=== PATIENT | female | born 1950 | race African-American/Black ===

== ENCOUNTER 2018-09-08 13:51 | Emergency (ER) | payer MEDICARE, OTHER ==
--- NOTE | 2018-09-08 15:13 | ER Document Report ---
ED Medical Screen (RME) - General Chief Complaint: Irregular Pulse Stated Complaint: IRREGULAR HEART RATE Time Seen by Provider: 09/08/18 15:11 Mode of Arrival: Wheelchair Information source: Patient Notes: 67-year-old female presents to ED for complaint of palpitation and irregular heartbeat after she was walking around the porch doing her steps that she has been instructed. She states that she felt a little short of breath and had a headache at the time. She states she can feel her pulse beating in her head. Patient does have a Holter monitor on that she pushed when she felt this racing heart. Patient is alert oriented respirations are regular and unlabored speaking in full sentences. She states she does have a history of a heart attack with blood pressure cholesterol sleep apnea hypothyroid and she was seen a week ago for an ear infection and is on an antibiotic. I have greeted and performed a rapid initial assessment of this patient. A comprehensive ED assessment and evaluation of the patient, analysis of test results and completion of medical decision making process will be conducted by an additional ED providers. TRAVEL OUTSIDE OF THE [place] IN LAST 30 DAYS: No - Related Data Allergies/Adverse Reactions: No Known Allergies Allergy (Verified 08/02/12 14:50) Past Medical History - Social History Chew tobacco use (# tins/day): No Frequency of alcohol use: None Drug Abuse: None - Past Medical History Cardiac Medical History: Reports: Hx Heart Attack - x2, Hx Hypercholesterolemia, Hx Hypertension Pulmonary Medical History: Reports: Hx Asthma Renal/ Medical History: Denies: Hx Peritoneal Dialysis GI Medical History: Reports: Hx Gastroesophageal Reflux Disease Past Surgical History: Reports: Hx Orthopedic Surgery - right ankle - Immunizations Hx Diphtheria, Pertussis, Tetanus Vaccination: No
[2018-09-08] MEDS ORDERED: ASPIRIN 81 MG TABLET, CHEWABLE PO ONE (15:15)
--- NOTE | 2018-09-08 15:36 | RADIOLOGY REPORT (SQ) ---
EXAM DESCRIPTION: CHEST 2 VIEWS COMPLETED DATE/TIME: 09/08/2018 3:28 pm REASON FOR STUDY: Irregular heart beat COMPARISON: 08/27/2010. EXAM PARAMETERS: NUMBER OF VIEWS: two views TECHNIQUE: Digital Frontal and Lateral radiographic views of the chest acquired. RADIATION DOSE: NA LIMITATIONS: none FINDINGS: LUNGS AND PLEURA: No opacities, masses or pneumothorax. No pleural effusion. MEDIASTINUM AND HILAR STRUCTURES: No masses or contour abnormalities. HEART AND VASCULAR STRUCTURES: Heart normal size. No evidence for failure. BONES: No acute findings. Degenerative changes in the spine. HARDWARE: None in the chest. OTHER: Small hiatal hernia. No other significant finding. IMPRESSION: NO ACUTE RADIOGRAPHIC FINDING IN THE CHEST. TECHNICAL DOCUMENTATION: JOB ID: [id number] [employer]- All Rights Reserved Reading location - IP/workstation name: [email or web address]
[2018-09-08 15:52] LABS: ABSOLUTE BASOPHILS # (AUTO) 0.1 10^3/uL (0.0-0.2); ABSOLUTE EOSINOPHILS # (AUTO) 0.1 10^3/uL (0.0-0.6); ABSOLUTE LYMPHOCYTES (AUTO) 1.4 10^3/uL (0.5-4.7); ABSOLUTE MONOCYTES (AUTO) 0.3 10^3/uL (0.1-1.4); ABSOLUTE NEUT (AUTO) 3.3 10^3/uL (1.7-8.2); EOSINOPHILS % (AUTO) 2.7 % (0-6); HEMATOCRIT 38.4 % (36.0-47.0); HEMOGLOBIN 12.8 g/dL (12.0-15.5); LYMPHOCYTES % (AUTO) 28.1 % (13-45); MEAN CORPUSCULAR HEMOGLOBIN 28.3 pg (27.0-33.4); MEAN CORPUSCULAR HGB CONC 33.3 g/dL (32.0-36.0); MEAN CORPUSCULAR VOLUME 85 fl (80-97); PLATELET COUNT 289 10^3/uL (150-450); RED BLOOD COUNT 4.51 10^6/uL (3.72-5.28); RED CELL DISTRIBUTION WIDTH 16.3 % (11.5-14.0); SEGMENTED NEUTROPHILS % (AUTO) 63.2 % (42-78); TOTAL CELLS COUNTED % (AUTO) 100 %; WHITE BLOOD COUNT 5.2 10^3/uL (4.0-10.5)
[2018-09-08 15:59] LABS: INTERNATIONAL RATION (INR) 0.94
[2018-09-08 16:05] LABS: ALANINE AMINOTRANSFERASE 21 U/L (9-52); ALBUMIN 4.2 g/dL (3.5-5.0); ALKALINE PHOSPHATASE 83 U/L (38-126); ANION GAP 9 (5-19); ASPARTATE AMINO TRANSFERASE 17 U/L (14-36); BILIRUBIN,DIRECT 0.2 mg/dL (0.0-0.4); BILIRUBIN,TOTAL 0.2 mg/dL (0.2-1.3); BLOOD UREA NITROGEN 11 mg/dL (7-20); CALCIUM 9.1 mg/dL (8.4-10.2); CARBON DIOXIDE 29 mmol/L (22-30); CHLORIDE 104 mmol/L (98-107); CREATINE KINASE 80 U/L (30-135); GLUCOSE 126 mg/dL (75-110); SODIUM 142.3 mmol/L (137-145); TOTAL PROTEIN 7.6 g/dL (6.3-8.2)
[2018-09-08 16:26] LABS: CREATINE KINASE MB < 0.22 ng/mL (<4.55); TROPONIN I < 0.012 ng/mL
[2018-09-08 16:29] LABS: FREE T3 2.86 pg/mL (2.77-5.27); FREE T4 (FREE THYROXINE) 1.58 ng/dL (0.78-2.19)
[2018-09-08 16:42] LABS: THYROID STIMULATING HORMONE 0.27 uIU/mL (0.47-4.68)
--- NOTE | 2018-09-08 17:41 | ER Document Report ---
ED General - General Chief Complaint: Irregular Pulse Stated Complaint: IRREGULAR HEART RATE Time Seen by Provider: 09/08/18 15:11 Primary Care Provider: JUAN TORRES MD [Primary Care Provider] - Follow up as needed Mode of Arrival: Wheelchair TRAVEL OUTSIDE OF THE [place] IN LAST 30 DAYS: No - HPI Patient complains to provider of: Palpitations Notes: Patient coming in for palpitations evaluated by in triage notes provided below 67-year-old female presents to ED for complaint of palpitation and irregular heartbeat after she was walking around the porch doing her steps that she has been instructed. She states that she felt a little short of breath and had a headache at the time. She states she can feel her pulse beating in her head. Patient does have a Holter monitor on that she pushed when she felt this racing heart. Patient is alert oriented respirations are regular and unlabored speaking in full sentences. She states she does have a history of a heart attack with blood pressure cholesterol sleep apnea hypothyroid and she was seen a week ago for an ear infection and is on an antibiotic. Patient states she had the palpitations after eating chicken pastry and applesauce. Patient states compliance with all her medications. Patient denies any chest pain back pain nausea vomiting fevers or chills. Patient states she has been asymptomatic after the 5 minutes of palpitations that she had after eat ing. Patient is resting comfortably. - Related Data Allergies/Adverse Reactions: No Known Allergies Allergy (Verified 08/02/12 14:50) Past Medical History - General Information source: Patient - Social History Smoking Status: Never Smoker Chew tobacco use (# tins/day): No Frequency of alcohol use: None Drug Abuse: None Family History: Reviewed & Not Pertinent Patient has suicidal ideation: No Patient has homicidal ideation: No - Past Medical History Cardiac Medical History: Reports: Hx Heart Attack - x2, Hx Hypercholesterolemia, Hx Hypertension Pulmonary Medical History: Reports: Hx Asthma Renal/ Medical History: Denies: Hx Peritoneal Dialysis GI Medical History: Reports: Hx Gastroesophageal Reflux Disease Past Surgical History: Reports: Hx Orthopedic Surgery - right ankle - Immunizations Hx Diphtheria, Pertussis, Tetanus Vaccination: No Hx Pneumococcal Vaccination: 08/05/06 Review of Systems - Review of Systems Constitutional: No symptoms reported EENT: No symptoms reported Cardiovascular: Palpitations Respiratory: No symptoms reported Gastrointestinal: No symptoms reported Genitourinary: No symptoms reported Female Genitourinary: No symptoms reported Musculoskeletal: No symptoms reported Skin: No symptoms reported Hematologic/Lymphatic: No symptoms reported Neurological/Psychological: No symptoms reported -: Yes All other systems reviewed and negative Physical Exam - Vital signs Vitals: Temp Pulse Resp BP Pulse Ox 98.1 F 95 16 171/80 H 98 09/08/18 14:11 09/08/18 14:11 09/08/18 14:11 09/08/18 14:11 09/08/18 14:11 Interpretation: Normal - General General appearance: Appears well, Alert - HEENT Head: Normocephalic, Atraumatic Eyes: Normal Pupils: PERRL - Respiratory Respiratory status: No respiratory distress Chest status: Nontender Breath sounds: Normal Chest palpation: Normal - Cardiovascular Rhythm: Regular Heart sounds: Normal auscultation Murmur: No - Abdominal Inspection: Normal Distension: No distension Bowel sounds: Normal Tenderness: Nontender Organomegaly: No organomegaly - Back Back: Normal, Nontender - Extremities General upper extremity: Normal inspection, Nontender, Normal color, Normal ROM, Normal temperature General lower extremity: Normal inspection, Nontender, Normal color, Normal ROM, Normal temperature, Normal weight bearing. No: Sandra's sign - Neurological Neuro grossly intact: Yes Cognition: Normal Orientation: AAOx4 Clifford Coma Scale Eye Opening: Spontaneous Clifford Coma Scale Verbal: Oriented [place] Coma Scale Motor: Obeys Commands Clifford Coma Scale Total: 15 Speech: Normal Motor strength normal: LUE, RUE, LLE, RLE Sensory: Normal - Psychological Associated symptoms: Normal affect, Normal mood - Skin Skin Temperature: Warm Skin Moisture: Dry Skin Color: Normal Course - Re-evaluation Re-evalutation: 09/08/18 18:39 The patient has palpitations as the patient's chest pain is not suggestive of pulmonary embolus, cardiac ischemia, aortic dissection, or other serious etiology. Given the extremely low risk of these diagnoses further testing and evaluation for these possibilities does not appear to be indicated at this time. The patient has been instructed to return if the symptoms worsen or change in any way. - Vital Signs Vital signs: Temp Pulse Resp BP Pulse Ox 98.2 F 95 20 135/70 H 100 09/08/18 18:17 09/08/18 14:11 09/08/18 18:01 09/08/18 18:01 09/08/18 18:01 - Laboratory Result Diagrams: 09/08/18 15:40 09/08/18 15:40 Laboratory results interpreted by me: 09/08/18 09/08/18 09/08/18 15:40 15:40 15:40 RDW 16.3 H Glucose 126 H TSH 0.27 L Discharge - Discharge Clinical Impression: Palpitation Condition: Good Instructions: Palpitations (Irregular or Rapid Heartrate) ([facility]) Additional Instructions: Your evaluation does not show any critical pathology for your palpitations would highly recommend she follow-up with your primary care physician there is no signs of infection in your left ear at this time we recommend follow-up with your primary care physician please continue antibiotics that you have been prescribed. Referrals: JUAN TORRES MD [Primary Care Provider] - Follow up as needed
[2018-09-08 18:14] VITALS: BP 135/70
--- NOTE | 2018-09-08 18:22 | EKG REPORT ---
SEVERITY:- ABNORMAL ECG - SINUS TACHYCARDIA LEFT VENTRICULAR HYPERTROPHY ANTERIOR INFARCT, AGE INDETERMINATE : Confirmed by: Annetta Wahl 08-Sep-2018 18:22:00
== END 2018-09-08 18:20 | disposition home or self-care (01) ==
LOC: ER 13:51
DX: R00.2 Palpitations (principal); R51 Headache; R06.02 Shortness of breath; E78.00 Pure hypercholesterolemia, unspecified; I10 Essential (primary) hypertension; I25.2 Old myocardial infarction
CPT/HCPCS: 93005; 99285; 36415; 84439; 82553; 82550; 84443; 85025; 85610; 80053; 84484; 84481; 71046; 93010; A9270

== ENCOUNTER 2019-08-19 12:16 | Emergency (ER) | payer MEDICARE, OTHER ==
--- NOTE | 2019-08-19 12:54 | ER Document Report ---
ED Medical Screen (RME) - General Chief Complaint: General Weakness Stated Complaint: BACK PAIN/SHORTNESS OF BREATH/LIGHT HEADED/WEAK Time Seen by Provider: 08/19/19 12:47 Primary Care Provider: JUAN TORRES MD [Primary Care Provider] - Follow up as needed Notes: Patient is a 68-year-old female who presents emergency department with multiple complaints. Her first complaint is weakness of the right leg. She also feels lightheaded and short of breath. Patient also has back pain, which she was seen by another emergency department for. Kidney stones were ruled out. Exam:5/5 strength in bilateral upper and lower extremities. Mild edema noted to right lower extremity, which patient states that she has had surgery on her right ankle in the past. States that the swelling is normal for her. Clear breath sounds throughout. I have greeted and performed a rapid initial assessment of this patient. A comprehensive ED assessment and evaluation of the patient, analysis of test results and completion of medical decision making process will be conducted by an additional ED providers. TRAVEL OUTSIDE OF THE [place] IN LAST 30 DAYS: No - Related Data Allergies/Adverse Reactions: No Known Allergies Allergy (Verified 08/19/19 12:45) Past Medical History - Past Medical History Cardiac Medical History: Reports: Hx Heart Attack - x2, Hx Hypercholesterolemia, Hx Hypertension Pulmonary Medical History: Reports: Hx Asthma Renal/ Medical History: Denies: Hx Peritoneal Dialysis GI Medical History: Reports: Hx Gastroesophageal Reflux Disease Past Surgical History: Reports: Hx Orthopedic Surgery - right ankle - Immunizations Hx Diphtheria, Pertussis, Tetanus Vaccination: No Physical Exam - Vital signs Vitals: Temp Pulse Resp BP Pulse Ox 97.7 F 89 20 152/87 H 97 08/19/19 12:34 08/19/19 12:34 08/19/19 12:34 08/19/19 12:34 08/19/19 12:34 Course - Vital Signs Vital signs: Temp Pulse Resp BP Pulse Ox 97.7 F 89 20 152/87 H 97 08/19/19 12:34 08/19/19 12:34 08/19/19 12:34 08/19/19 12:34 08/19/19 12:34 Doctor's Discharge - Discharge Referrals: JUAN TORRES MD [Primary Care Provider] - Follow up as needed
[2019-08-19 13:35] LABS: ABSOLUTE BASOPHILS # (AUTO) 0.1 10^3/uL (0.0-0.2); ABSOLUTE EOSINOPHILS # (AUTO) 0.2 10^3/uL (0.0-0.6); ABSOLUTE LYMPHOCYTES (AUTO) 1.7 10^3/uL (0.5-4.7); ABSOLUTE MONOCYTES (AUTO) 0.2 10^3/uL (0.1-1.4); ABSOLUTE NEUT (AUTO) 2.7 10^3/uL (1.7-8.2); BASOPHILS % (AUTO) 1.4 % (0-2); EOSINOPHILS % (AUTO) 3.2 % (0-6); HEMATOCRIT 40.6 % (36.0-47.0); HEMOGLOBIN 13.4 g/dL (12.0-15.5); LYMPHOCYTES % (AUTO) 34.5 % (13-45); MEAN CORPUSCULAR HEMOGLOBIN 28.9 pg (27.0-33.4); MEAN CORPUSCULAR VOLUME 88 fl (80-97); MONOCYTES % (AUTO) 4.4 % (3-13); PLATELET COUNT 240 10^3/uL (150-450); RED BLOOD COUNT 4.64 10^6/uL (3.72-5.28); RED CELL DISTRIBUTION WIDTH 16.2 % (11.5-14.0); SEGMENTED NEUTROPHILS % (AUTO) 56.5 % (42-78); TOTAL CELLS COUNTED % (AUTO) 100 %; WHITE BLOOD COUNT 4.9 10^3/uL (4.0-10.5)
[2019-08-19 13:44] LABS: APPEARANCE,URINE CLEAR; BILIRUBIN,URINE NEGATIVE (NEGATIVE); COLOR,URINE STRAW; GLUCOSE, URINE NEGATIVE (NEGATIVE); KETONES,URINE NEGATIVE (NEGATIVE); LEUKOCYTE ESTERASE,URINE NEGATIVE (NEGATIVE); NITRITE,URINE NEGATIVE (NEGATIVE); PROTEIN,URINE NEGATIVE (NEGATIVE); URINE SPECIFIC GRAVITY 1.009; UROBILINOGEN,URINE NEGATIVE mg/dL (<2.0)
[2019-08-19 13:54] LABS: ALBUMIN 4.1 g/dL (3.5-5.0); ALKALINE PHOSPHATASE 64 U/L (38-126); ANION GAP 12 (5-19); ASPARTATE AMINO TRANSFERASE 19 U/L (14-36); BILIRUBIN,DIRECT 0.3 mg/dL (0.0-0.4); BILIRUBIN,TOTAL 0.3 mg/dL (0.2-1.3); BLOOD UREA NITROGEN 23 mg/dL (7-20); CALCIUM 9.9 mg/dL (8.4-10.2); CARBON DIOXIDE 29 mmol/L (22-30); CHLORIDE 98 mmol/L (98-107); GLUCOSE 110 mg/dL (75-110); POTASSIUM 4.1 mmol/L (3.6-5.0); TOTAL PROTEIN 8.1 g/dL (6.3-8.2)
--- NOTE | 2019-08-19 14:11 | RADIOLOGY REPORT (SQ) ---
EXAM DESCRIPTION: ANKLE RIGHT COMPLETE COMPLETED DATE/TIME: 08/19/2019 1:56 pm REASON FOR STUDY: weakness COMPARISON: None. NUMBER OF VIEWS: Three views. TECHNIQUE: AP, lateral, and oblique radiographic images acquired of the right ankle. LIMITATIONS: None. FINDINGS: MINERALIZATION: Normal. BONES: No fracture or dislocation acutely. There is a long compression plate on the distal fibula an d 2 cannulated screws in the medial malleolus. JOINTS: No effusions. SOFT TISSUES: No soft tissue swelling. No foreign body. OTHER: No other significant finding. IMPRESSION: Prior ORIF. No acute finding. TECHNICAL DOCUMENTATION: JOB ID: [id number] [employer]- All Rights Reserved Reading location - IP/workstation name: [email or web address]
--- NOTE | 2019-08-19 14:28 | RADIOLOGY REPORT (SQ) ---
EXAM DESCRIPTION: CHEST 2 VIEWS COMPLETED DATE/TIME: 08/19/2019 1:56 pm REASON FOR STUDY: shortness of breath COMPARISON: 09/08/2018 EXAM PARAMETERS: NUMBER OF VIEWS: two views TECHNIQUE: Digital Frontal and Lateral radiographic views of the chest acquired. RADIATION DOSE: NA LIMITATIONS: none FINDINGS: LUNGS AND PLEURA: No opacities, masses or pneumothorax. No pleural effusion. MEDIASTINUM AND HILAR STRUCTURES: Hiatal hernia. HEART AND VASCULAR STRUCTURES: Heart normal size. No evidence for failure. BONES: No acute findings. HARDWARE: None in the chest. OTHER: No other significant finding. IMPRESSION: Hiatal hernia. No acute cardiopulmonary findings. TECHNICAL DOCUMENTATION: JOB ID: [id number] [employer]- All Rights Reserved Reading location - IP/workstation name: [email or web address]
--- NOTE | 2019-08-19 16:09 | ER Document Report ---
ED General - General Chief Complaint: General Weakness Stated Complaint: BACK PAIN/SHORTNESS OF BREATH/LIGHT HEADED/WEAK Time Seen by Provider: 08/19/19 12:47 Primary Care Provider: JUAN TORRES MD [Primary Care Provider] - Follow up as needed TRAVEL OUTSIDE OF THE [place] IN LAST 30 DAYS: No - HPI Patient complains to provider of: right foot weakness left shoulder shoulder swe lling Onset: This morning Quality of pain: No pain Severity: Moderate Context: 68 year old female arrives with right foot weakness "for maybe a second" this am. Also Left shoulder swelling that is now better. She also mentions back pain that in thoracic pain and actually improving. Seen at [facility] ED reportedly the other evening and renal Ct did not show etiology of back pain. She wonders also if she may have a UTI. Right ankle surgery ORIF 7 years ago without injury now. Pain at times and some degree of chronic sts there but not any worse today. - Related Data Allergies/Adverse Reactions: No Known Allergies Allergy (Verified 08/19/19 12:45) Past Medical History - Social History Smoking Status: Never Smoker Family History: Reviewed & Not Pertinent Patient has suicidal ideation: No Patient has homicidal ideation: No - Past Medical History Cardiac Medical History: Reports: Hx Heart Attack - x2, Hx Hypercholesterolemia, Hx Hypertension Pulmonary Medical History: Reports: Hx Asthma Renal/ Medical History: Denies: Hx Peritoneal Dialysis GI Medical History: Reports: Hx Gastroesophageal Reflux Disease Past Surgical History: Reports: Hx Orthopedic Surgery - right ankle - Immunizations Hx Diphtheria, Pertussis, Tetanus Vaccination: No Hx Pneumococcal Vaccination: 08/05/06 Review of Systems - Review of Systems Constitutional: No symptoms reported EENT: No symptoms reported Cardiovascular: No symptoms reported Respiratory: No symptoms reported Gastrointestinal: No symptoms reported Genitourinary: No symptoms reported Female Genitourinary: No symptoms reported Musculoskeletal: No symptoms reported Skin: No symptoms reported Hematologic/Lymphatic: No symptoms reported Neurological/Psychological: No symptoms reported Physical Exam - Vital signs Vitals: Temp Pulse Resp BP Pulse Ox 97.7 F 89 20 152/87 H 97 08/19/19 12:34 08/19/19 12:34 08/19/19 12:34 08/19/19 12:34 08/19/19 12:34 Interpretation: Normal - General General appearance: Appears well, Alert - HEENT Head: Normocephalic, Atraumatic Eyes: Normal Pupils: PERRL - Respiratory Respiratory status: No respiratory distress Chest status: Nontender Breath sounds: Normal Chest palpation: Normal - Cardiovascular Rhythm: Regular Heart sounds: Normal auscultation Murmur: No - Abdominal Inspection: Normal Distension: No distension Bowel sounds: Normal Tenderness: Nontender Organomegaly: No organomegaly - Back Back: Normal, Nontender - Extremities General upper extremity: Normal inspection, Nontender, Normal color, Normal ROM, Normal temperature General lower extremity: Normal inspection, Nontender, Normal color, Normal ROM, Normal temperature, Normal weight bearing. No: Sandra's sign - Neurological Neuro grossly intact: Yes Cognition: Normal Orientation: AAOx4 Clifford Coma Scale Eye Opening: Spontaneous [place] Coma Scale Verbal: Oriented [place] Coma Scale Motor: Obeys Commands [place] Coma Scale Total: 15 Speech: Normal Motor strength normal: LUE, RUE, LLE, RLE Sensory: Normal - Psychological Associated symptoms: Normal affect, Normal mood - Skin Skin Temperature: Warm Skin Moisture: Dry Skin Color: Normal Course - Re-evaluation Re-evalutation: 08/19/19 16:16 MDM 68 year old female here for several hours when I see her. I reviewed her labs and xray with her. No chest pain or sob. no fever or chills. no focal weakness. She has had about 1 second in her words of left foot ankle weakness today. No visual change. No chest pain and no sob. She feels improved here and sees Dr. Torres in [place] normally. We discussed follow up and she expressed understanding and will follow up with him. - Vital Signs Vital signs: Temp Pulse Resp BP Pulse Ox 97.7 F 89 20 152/87 H 97 08/19/19 12:34 08/19/19 12:34 08/19/19 12:34 08/19/19 12:34 08/19/19 12:34 - Laboratory Result Diagrams: 08/19/19 13:25 08/19/19 13:25 Laboratory results interpreted by me: 08/19/19 08/19/19 08/19/19 13:25 13:25 13:25 RDW 16.2 H BUN 23 H Est GFR (MDRD) Non-Af 54 L Urine Blood SMALL H - Diagnostic Test Radiology reviewed: Reports reviewed - EKG Interpretation by Me EKG shows normal: Sinus rhythm Rate: Normal Rhythm: NSR When compared to previous EKG there are: No significant change - NSR Left [place] [address] elevation or depression my interpretation. Discharge - Discharge Clinical Impression: Swelling Condition: Good Disposition: HOME, SELF-CARE Instructions: High Blood Pressure ([facility]), High Blood Pressure, Requiring Treatment ([facility]) Additional Instructions: Your blood pressure was just a bit elevated here. Be sure and have it rechecked. See Dr. Torres in follow up. Call his office today. Please return here for chest pain, shortness of breath or any other concerns. Forms: Elevated Blood Pressure Referrals: JUAN TORRES MD [Primary Care Provider] - Follow up as needed
[2019-08-19 16:52] VITALS: BP 148/86
--- NOTE | 2019-08-20 01:01 | EKG REPORT ---
SEVERITY:- ABNORMAL ECG - SINUS RHYTHM VENTRICULAR PREMATURE COMPLEX LEFT VENTRICULAR HYPERTROPHY ANTERIOR Q WAVES, POSSIBLY DUE TO LVH BORDERLINE PROLONGED QT INTERVAL : Confirmed by: Holly May MD 20-Aug-2019 01:01:07
== END 2019-08-19 16:51 | disposition home or self-care (01) ==
LOC: ER 12:16
DX: M54.6 Pain in thoracic spine (principal); M25.412 Effusion, left shoulder; R53.1 Weakness; R06.02 Shortness of breath; M54.9 Dorsalgia, unspecified; I25.2 Old myocardial infarction; E78.00 Pure hypercholesterolemia, unspecified; I10 Essential (primary) hypertension
CPT/HCPCS: 36415; 71046; 80053; 81001; 85025; 93005; 93010; 99284